=== PATIENT | female | born 1935 | race Hispanic/Latino ===

== ENCOUNTER 2018-10-28 09:27 | Day surgery (SDC) | payer MEDICARE ==
[~2018-10-28] VITALS: Ht 147.3 cm; Wt 84.4 kg
[2018-10-28] VITALS (7 sets, daily range): BP systolic 70–161; BP diastolic 43–70
[~2018-10-28 09:27] MED LIST: ACET-2743 PO; CELE200 PO; ESOM40CA PO; FERR324T10 PO; FURO20TA6 PO; INSU100I3 SQ; INSU100V12 SQ; LEVO100T12 PO; OLME1TAB11 PO; ONDA8TAB8 PO; OXYC5 PO; Polyethylene Glycol 3350 PO; SIMV40TA59 PO; TRAM50TA4 PO
[2018-10-28] MEDS ORDERED: TRAM-355 PO (11:49)
[2018-10-28] MEDS ORDERED: OLME1TAB44 PO (11:49)
[2018-10-28] MEDS ORDERED: LEVO5TAB13 PO (11:49)
[2018-10-28] MEDS ORDERED: SODIUM CHLORIDE 0.9% 1000ML 1,000 ML IV ONE (11:54)
[2018-10-28] MEDS ORDERED: LIDOCAINE HCL 1% 20 ML VIAL ONE (12:07)
== END 2018-10-28 13:00 | disposition home or self-care (01) ==
LOC: DAH 09:27
PROVIDERS: ATTEND Internal Medicine
DX: K29.50 Unspecified chronic gastritis without bleeding (principal); K44.9 Diaphragmatic hernia without obstruction or gangrene; K31.89 Other diseases of stomach and duodenum; E03.9 Hypothyroidism, unspecified; E11.9 Type 2 diabetes mellitus without complications; I10 Essential (primary) hypertension; K21.9 Gastro-esophageal reflux disease without esophagitis; E78.5 Hyperlipidemia, unspecified; Z68.37 Body mass index [BMI] 37.0-37.9, adult
CPT/HCPCS: 43239; 82948 ×2; 88305; 88342; 93005; A4606; J7030

== ENCOUNTER → 2021-11-01 | Outpatient (CLI) | payer MEDICARE ==
[~2021-11-01] MED LIST changes: -ACET-2743 PO; +AMLO5TAB4 PO; +ATOR40TA69 PO; -CELE200 PO; -FERR324T10 PO; +LEVO5TAB13 PO; -OLME1TAB11 PO; -ONDA8TAB8 PO; -OXYC5 PO; -Polyethylene Glycol 3350 PO; -SIMV40TA59 PO; +TRAM-355 PO; -TRAM50TA4 PO
== END | disposition home or self-care (01) ==
LOC: LAB 14:26
PROVIDERS: ATTEND Otolaryngology Plastic Surgery within the Head & Neck
DX: H90.3 Sensorineural hearing loss, bilateral (principal)
CPT/HCPCS: 36415; 82565; 84520

== ENCOUNTER 2022-07-23 14:19 | Emergency (ER) | payer MEDICARE ==
[~2022-07-23] VITALS: Ht 147.3 cm; Wt 75.3 kg
[2022-07-23 16:09] VITALS: BP 115/82
[2022-07-23] MEDS ORDERED: DICL20GE TP (16:33)
== END 2022-07-23 17:03 | disposition home or self-care (01) ==
LOC: EDH 14:19
DX: M24.412 Recurrent dislocation, left shoulder (principal); I10 Essential (primary) hypertension; E78.00 Pure hypercholesterolemia, unspecified; E11.9 Type 2 diabetes mellitus without complications; Z79.4 Long term (current) use of insulin; Z90.49 Acquired absence of other specified parts of digestive tract; Z79.899 Other long term (current) drug therapy
CPT/HCPCS: 73030